=== PATIENT | male | born 1975 | race African-American/Black ===

== ENCOUNTER 2020-11-26 19:54 | Emergency (ER) | payer MEDICARE, SELFPAY ==
[2020-11-26 20:14] VITALS: BP 134/83; PULSE 118; RESP 16; TEMP 36.9; O2SAT 97
--- NOTE | 2020-11-26 20:20 | ED.GENADULT ---
HPI - General Adult General Chief complaint: Recheck/Abnormal Lab/Rx Stated complaint: High Sugars Time Seen by Provider: 11/26/20 20:20 Source: patient, family and RN notes reviewed Mode of arrival: ambulatory Limitations: no limitations History of Present Illness HPI narrative: 45 year old male accompanied by presents to express care with complaint of elevated blood sugar. Patient is visiting from [facility] for event and forget to bring his Lantus and Humalog insulin and his [place]. He states that he is suppose to return home to [facility] tomorrow but he checked his sugar on his machine and it read over 600 so doesn't feel he can go without his insulin till he gets home. Patient denies any dizziness, visual changes, or changes in mental acuity. Blood glucose per finger stick 448 in clinic. Related Data Home Medications Medication Instructions Recorded Confirmed [place] 11/26/20 Janumet 11/26/20 acarbose 25 mg PO TID 11/26/20 11/26/20 amlodipine 11/26/20 atorvastatin 40 mg PO DAILY 11/26/20 11/26/20 glimepiride 11/26/20 insulin glargine [Lantus U-100 40 unit SUBCUT 11/26/20 Insulin] insulin lispro [Humalog U-100 15 unit TID 11/26/20 11/26/20 Insulin] lisinopril 20 mg PO DAILY 11/26/20 11/26/20 metoprolol tartrate 25 mg PO DAILY 11/26/20 11/26/20 pantoprazole [Protonix] 40 mg PO QAM 11/26/20 11/26/20 Allergies Allergy/AdvReac Type Severity Reaction Status Date / Time No Known Allergies Allergy Verified 11/26/20 20:02 Review of Systems Review of Systems: Narrative: CONSTITUTIONAL: Denies fever, chills, or sweats. EYES: Denies visual changes, redness, or discharge. ENT: Denies rhinorrhea, congestion, sore throat, or otalgia. CARDIOVASCULAR: Denies chest pain, palpitations, or edema. RESPIRATORY: Denies cough or dyspnea. GASTROINTESTINAL: Denies abdominal pain, nausea, vomiting, or diarrhea. GENITOURINARY: Denies dysuria or hematuria admits to some frequency of urination. SKIN: Denies rash or itching. MUSCULOSKELETAL: Denies back pain, joint pain, or myalgia. NEUROLOGIC: Denies headache, numbness, or weakness. PSYCHIATRIC: Denies anxiety or depression. All systems reviewed & are unremarkable except as noted in HPI and below PMFSH Past Medical History Medical History (Updated 11/29/20 @ 09:08 by Nancy Spann NP) Diabetes GERD (gastroesophageal reflux disease) Hyperlipidemia Hypertension Obesity Surgical History Surgical History (Updated 11/29/20 @ 09:04 by Nancy Spann NP) H/O arthroscopy of right knee Hx of hand surgery plastic repair for crushing injury Family History Family History (Updated 11/29/20 @ 09:07 by Nancy Spann NP) Other Diabetes mellitus Hypertension Social History Social History (Updated 11/29/20 @ 09:07 by Nancy Spann NP) Smoking status: Former smoker Alcohol intake: current Alcohol use details: rare social Substance use: never Living arrangements: with family Gender identity (if verbalized by the patient): Male Comments At time of signature, agree with nursing past medical, surgical, social and family history. There is no relevant family history pertinent to the presenting complaint Exam Narrative: Exam Narrative: GENERAL: Well-appearing, well-nourished, obese and in no acute distress. HEAD: Normocephalic, atraumatic. EYES: PERRLA and EOMI. ENT: Nares clear, no rhinorrhea or epistaxis. Mucous membranes moist.TM's normal, throat pink with no lesions or exudates, no tonsil swelling or redness NECK: Supple. no lymphadenopathy CHEST: Clear to auscultation. No respiratory distress.SAO2 97% on room air HEART: Regular rate and rhythm. No murmur heard. Normal peripheral pulses. ABDOMEN: Soft, nontender, nondistended, normal active bowel sounds. EXTREMITIES: Normal range of motion. No edema. SKIN: Warm, dry, no rash. NEURO: No focal deficits. Alert and oriented x3. Course Vital Signs Vi
[2020-11-26 20:21] LABS: Glucose Point of Care 448 mg/dl (65-105)
[2020-11-26 20:29] VITALS: BP 134/83; PULSE 118; RESP 16; TEMP 36.9; O2SAT 97
== END 2020-11-26 20:48 | disposition home or self-care (01) ==
PROVIDERS: Emergency Provider Registered Nurse
DX: E11.9 Type 2 diabetes mellitus without complications (principal); Z76.0 Encounter for issue of repeat prescription; Z79.4 Long term (current) use of insulin; Z87.891 Personal history of nicotine dependence; K21.9 Gastro-esophageal reflux disease without esophagitis; E78.5 Hyperlipidemia, unspecified; I10 Essential (primary) hypertension; E66.9 Obesity, unspecified
CPT/HCPCS: 82948; 99212; G0463